=== PATIENT | female | born 1990 | race Caucasian/White ===

== ENCOUNTER 2017-11-24 22:10 | Emergency (ER) | payer OTHER ==
[2017-11-24] MEDS ORDERED: FAMOTIDINE 20 MG/2 ML SDV IVP ONE (22:27)
[2017-11-24] MEDS ORDERED: methylPREDNISolone SOD SUCC 125 MG/2 ML VIAL IVP ONE (22:27)
[2017-11-24 22:55] LABS: PLATELET COUNT 152 10^3/uL (150-400)
--- NOTE | 2017-11-25 00:29 | EDPHY ---
H & P Stated Complaint: ?allergic reaction or sinus infection Time Seen by Provider: 11/24/17 22:21 HPI/ROS: Chief Complaint: Facial swelling, allergic reaction, abdominal pain, bronchitis HPI: 27-year-old woman presenting with 2 weeks of cough, general malaise and some abdominal pain. Patient was seen earlier today at urgent care and started on azithromycin, Mucinex, and albuterol inhaler. After taking the azithromycin she noticed increasing swelling of her left lip and below her left eye. She has had a similar episode years ago when she was younger. Is not aware of any other allergies. Does not have a sensation of throat is closing. No rash or hives. She is complaining of some upper central abdominal pain, worse when she coughs. Some subjective fevers and chills at home. No nausea or vomiting. She does have a history of some sort of biliary problem as a infant and had her gallbladder taken out at a very young age. Denies any history of liver function problems. Has been taking appropriate doses of ibuprofen acetaminophen per [id number] per package instructions for the last several days. ROS: 10 systems were reviewed and were negative except those elements noted in the HPI. PMH: Cholecystectomy as a child Social History: Positive smoking, no alcohol, no recreational drug use Family History: non-contributory Physical Exam: Gen: Awake, Alert, No Distress HEENT: Mild left infraorbital edema Nose: no rhinorrhea Eyes: PERRLA, EOMI Mouth: Moist mucosa mild upper left lip angioedema, oropharynx is normal, uvula is midline, Neck: Supple, no JVD, no lymphadenopathy Chest: nontender, lungs clear to auscultation Heart: S1, S2 normal, no murmur Abd: Soft, mild epigastric tenderness, no guarding Back: no CVA tenderness, no midline tenderness Ext: no edema, non-tender Skin: no rash Neuro: CN II-XII intact, Sensation grossly intact, Strength 5/5 in bilateral upper and lower extremities - Personal History LMP (Females 10-55): IUD In Place Current Tetanus/Diphtheria Vaccine: Yes Current Tetanus Diphtheria and Acellular Pertussis (TDAP): Yes - Medical/Surgical History Hx Asthma: No Hx Chronic Respiratory Disease: No Hx Diabetes: No Hx Cardiac Disease: No Hx Renal Disease: No Hx Cirrhosis: No Hx Alcoholism: No Hx HIV/AIDS: No Hx Splenectomy or Spleen Trauma: No Other PMH: Anxiety - Social History Smoking Status: Current every day smoker Constitutional: Initial Vital Signs Temperature (C) 36.7 C 11/24/17 22:14 Heart Rate 80 11/24/17 22:14 Respiratory Rate 16 11/24/17 22:14 Blood Pressure 143/81 H 11/24/17 22:14 O2 Sat (%) 96 11/24/17 22:14 O2 Delivery Mode Room Air Allergies/Adverse Reactions: No Known Allergies Allergy (Unverified 08/17/14 17:13) Home Medications: Medication Instructions Recorded Hydrocodone/APAP 5/325 [[place] 1 - 2 each PO Q6 PRN #20 tab 08/17/14 5/325] Hydrocodone/APAP 5/325 [[place] 1 - 2 each PO Q6 PRN #20 tab 08/17/14 5/325] LORazepam [Ativan] 1 mg PO TID PRN #20 tab 08/17/14 LORazepam [Ativan] 1 mg PO TID PRN #20 tab 08/17/14 predniSONE 60 mg PO DAILY #9 tab 11/25/17 Medical Decision Making - Diagnostics Imaging Results: Imaging Impressions Abdomen Ultrasound 11/24/17 23:25 Impression: 1. No biliary ductal dilation. 2. Prior cholecystectomy. 3. No hepatomegaly, ascites, or hepatic masses. 4. No peripancreatic fluid. Findings and recommendations discussed with Emergency Department physician, Faustino Ann MD at 23:57 hour, 11/24/2017. Final report concurs with initial preliminary interpretation. Imaging: Discussed imaging studies w/ call center trainer Radiologist ED Course/Re-evaluation: Patient noted to have elevated transaminases, bilirubin is normal. Mild elevation in alk-phos. Right upper quadrant ultrasound is negative. She tells me she has not have a history of elevated liver function tests that she is aware of in the past. Her pain is in the epigastrium worse with cough. Abdomen is soft with no particular liver tenderness. No hepatomegaly. She has been taking Tylenol and ibuprofen but tells me that she has not exceeded 4-5 tablets in a 24 hr. Of the Tylenol which is well within appropriate dosing. Her facial swelling has gone down. Plan will be to discharge her on continued prednisone and Benadryl. Will refer her to GI and primary care for further evaluation of her transaminitis. She will discontinue the azithromycin. - Data Points Laboratory Results: Laboratory Results 11/24/17 22:45 11/24/17 22:45 11/24/17 11/24/17 11/24/17 22:45 22:45 22:45 WBC 10.60 10^3/uL H 10^3/uL (3.80-9.50) RBC 4.10 10^6/uL L 10^6/uL (4.18-5.33) Hgb 13.8 g/dL g/dL (12.6-16.3) Hct 38.9 % % (38.0-47.0) MCV 94.9 fL fL (81.5-99.8) MCH 33.7 pg pg (27.9-34.1) MCHC 35.5 g/dL g/dL (32.4-36.7) RDW 11.9 % % (11.5-15.2) Plt Count 152 10^3/uL 10^3/uL (150-400) MPV 9.5 fL fL (8.7-11.7) Neut % (Auto) 83.4 % H % (39.3-74.2) Lymph % (Auto) 10.4 % L % (15.0-45.0) [place] % (Auto) 4.4 % L % (4.5-13.0) Eos % (Auto) 1.0 % % (0.6-7.6) Baso % (Auto) 0.2 % L % (0.3-1.7) Nucleat RBC Rel Count 0.0 % % (0.0-0.2) Absolute Neuts (auto) 8.84 10^3/uL H 10^3/uL (1.70-6.50) Absolute Lymphs (auto) 1.10 10^3/uL 10^3/uL (1.00-3.00) Absolute Monos (auto) 0.47 10^3/uL 10^3/uL (0.30-0.80) Absolute Eos (auto) 0.11 10^3/uL 10^3/uL (0.03-0.40) Absolute Basos (auto) 0.02 10^3/uL 10^3/uL (0.02-0.10) Absolute Nucleated RBC 0.00 10^3/uL 10^3/uL (0-0.01) Immature Gran % 0.6 % % (0.0-1.1) Immature Gran # 0.06 10^3/uL 10^3/uL (0.00-0.10) Sodium 137 mEq/L mEq/L (135-145) Potassium 3.1 mEq/L L mEq/L (3.3-5.0) Chloride 100 mEq/L mEq/L (97-110) Carbon Dioxide 27 mEq/l mEq/l (22-31) Anion Gap 10 mEq/L mEq/L (8-16) BUN 7 mg/dL mg/dL (7-23) Creatinine 0.5 mg/dL L mg/dL (0.6-1.0) Estimated GFR > 60 Glucose 103 mg/dL H mg/dL (70-100) Calcium 9.0 mg/dL mg/dL (8.5-10.4) Total Bilirubin 1.3 mg/dL mg/dL (0.1-1.4) AST 656 IU/L H IU/L (14-46) ALT 189 IU/L H IU/L (9-52) Alkaline Phosphatase 158 IU/L H IU/L (38-126) Total Protein 6.2 g/dL L g/dL (6.3-8.2) Albumin 3.5 g/dL g/dL (3.5-5.0) Lipase 88 IU/L IU/L (23-300) Beta HCG, Qual NEGATIVE Medications Given: Discontinued Medications Famotidine (Pepcid) 20 mg IVP EDNOW ONE Stop: 11/24/17 22:28 Last Admin: 11/24/17 22:46 Dose: 20 mg Methylprednisolone Sodium Succinate (Solu-Medrol) 125 mg IVP EDNOW ONE Stop: 11/24/17 22:28 Last Admin: 11/24/17 22:46 Dose: 125 mg Departure - Departure Disposition: Home, Routine, Self-Care Clinical Impression: Allergic reaction, Transaminitis, Bronchitis Condition: Good Instructions: General Allergic Reaction (ED) Additional Instructions: Continue taking Benadryl 50 mg every 6 hr for facial swelling or rash. Take ibuprofen, 600 mg every 8 hr. You may alternate with acetaminophen, 1000 mg every 8 hr. May continue using albuterol inhaler as needed for cough or wheeze. Take your full course of prednisone. Follow up with Gastroenterology in 3-4 days for further evaluation of your abnormal liver function test. Follow up with primary care in 3-4 days for recheck of your bronchitis. Referrals: Austen Tapia MD [Medical Doctor] - As per Instructions Rai Little MD [Medical Doctor] - As per Instructions Prescriptions: predniSONE 60 mg PO DAILY #9 tab
[2017-11-25 00:48] VITALS: BP 126/72
== END 2017-11-25 00:47 | disposition home or self-care (01) ==
DX: T78.40XA Allergy, unspecified, initial encounter (principal); R74.0 Nonspecific elevation of levels of transaminase and lactic acid dehydrogenase [LDH]; J40 Bronchitis, not specified as acute or chronic; F17.200 Nicotine dependence, unspecified, uncomplicated
CPT/HCPCS: 96374; J2930